=== PATIENT | female | born 1975 | race Caucasian/White ===

== ENCOUNTER → 2016-07-11 | Outpatient (CLI) | payer OTHER ==
[~2016-07-11] MED LIST: CETI10TA84 PO; CHOL100027 PO; CYAN10004 PO; LEVO125T72 PO
[2016-07-11 16:56] LABS: BLOOD UREA NITROGEN 14 mg/dl (7-18); BUN/CREATININE RATIO 18.4 (10-20); CALCIUM 9.6 mg/dl (8.5-10.1); CARBON DIOXIDE 29 mmol/L (21-32); CHLORIDE 104 mmol/L (98-107); CREATININE 0.75 mg/dl (0.60-1.20); GLUCOSE 78 mg/dl (70-99); POTASSIUM 3.8 mmol/L (3.5-5.1); SODIUM 140 mmol/L (136-145)
== END | disposition home or self-care (01) ==
LOC: C.LAB 15:27
PROVIDERS: ATTEND Internal Medicine Endocrinology, Diabetes & Metabolism
DX: E89.0 Postprocedural hypothyroidism (principal)

== ENCOUNTER → 2016-09-19 | Outpatient (CLI) | payer OTHER ==
[2016-09-19 17:09] LABS: THYROID STIMULATING HORMONE 0.726 uIu/ml (0.300-4.500)
== END | disposition home or self-care (01) ==
LOC: C.LAB 15:24
PROVIDERS: ATTEND Internal Medicine Endocrinology, Diabetes & Metabolism
DX: E05.00 Thyrotoxicosis with diffuse goiter without thyrotoxic crisis or storm (principal); E55.9 Vitamin D deficiency, unspecified; E66.9 Obesity, unspecified

== ENCOUNTER → 2017-04-01 | Outpatient (CLI) | payer OTHER | END | disposition home or self-care (01) | LOC: C.LAB 08:47 | PROVIDERS: ATTEND Nurse Practitioner Family | DX: E89.0 Postprocedural hypothyroidism (principal); E05.00 Thyrotoxicosis with diffuse goiter without thyrotoxic crisis or storm; E55.9 Vitamin D deficiency, unspecified; E66.9 Obesity, unspecified ==

== ENCOUNTER 2020-11-14 13:32 | Inpatient (IN) ==
[2020-11-14 14:17] LABS: Basophils # (auto) 0.02 K/uL (0-0.2); Basophils % (auto) 0.2 %; Eosinophils # (auto) 0.08 K/uL (0-0.5); Eosinophils % (auto) 0.9 %; Hematocrit (blood only) 46.8 % (37-47); Hemoglobin 15.7 g/dL (12.0-16.0); Immature Granulocytes # (auto) 0.01 K/uL (0.00-0.02); Immature Granulocytes % (auto) 0.1 %; Lymphocytes % (auto) 14.4 %; Mean Corpuscular Hemoglobin 31.4 pg (25-34); Mean Corpuscular Hgb Conc 33.5 g/dL (32-36); Mean Corpuscular Volume 93.6 fL (80-100); Mean Platelet Volume 10.6 fL (7.4-10.4); Monocytes # (auto) 0.26 K/uL (0.11-0.59); Monocytes % (auto) 2.9 %; Neutrophils # (auto) 7.36 K/uL (1.4-6.5); Neutrophils % (auto) 81.5 %; Platelet Count 293 K/uL (130-400); RDW Coefficient of Variation 13.4 % (11.5-14.5); RDW Standard Deviation 45.9 fL (36.4-46.3); White Blood Count 9.03 K/uL (4.8-10.8)
--- NOTE | 2020-11-14 14:23 | Emergency Department Note ---
Impression & Plan SBO (small bowel obstruction), Acute right flank pain ED Provider Note INFORMANT: Patient ED PROVIDER(S): Ponce Bridges MD CHIEF COMPLAINT: Right flank pain PLAN: Disposition: Admitted Condition: Good Outpatient prescription management: none Referral: None MEDICAL DECISION MAKING: Patient presented to the emergency department because of right flank pain. She underwent a work-up. Her CBC and chemistry panel were unremarkable. The patient was found to have a small bowel obstruction on CT imaging. The patient was hydrated and treated with Zofran. She had an NG tube placed. She was given Reglan and Benadryl due to nausea after NG tube placement. Received and she was feeling much better. The patient had a consult placed with Dr. Fam and he evaluated her in the ER. She was admitted for further management. Triage Nursing notes reviewed and agree them. Vital Signs: reviewed and remarkable for no significant abnormalities Differential diagnosis: Renal colic, UTI, appendicitis, diverticulitis, mesenteric ischemia, aortic pathology, infections, inflammatory bowel disease, PUD, biliary pathology, as well as other pathologies. Diagnostics interpreted by me: ECG: none Cardiac Monitoring: Cardiac monitoring ordered by me: The patient was placed on continuous cardiac monitoring and observed. It revealed a normal sinus rhythm at 86 beats per minute without ectopy or evidence of dysrhythmia. Imaging studies: CT scan of the head was concerning for small bowel obstruction with likely adhesions. I refer you to the EMR for further details. HPI: The patient is a 45 year old female who presents to the Emergency Room with complaints of right flank pain. This started yesterday and is worsening. The patient also notes the following associated symptoms, nausea, bloating. The patient has found no relieving factors. Current pain is rated as 5/10. Sharp pain, colicky. Pt denies LOC, headache, fevers, chills, diaphoresis, visual changes, neck pain, chest pain, breathing difficulties, nausea, vomiting, abdominal pain, back pain, melena, hematochezia, urinary symptoms, numbness, weakness, lymphadenopathy, rash, or other complaints. ROS: See above HPI for pertinent positives & negatives. A total of 10 systems reviewed and were otherwise negative. PAST MEDICAL HISTORY:See Below , hernia PAST SURGICAL HISTORY:See Below, hernia repair FAMILY HISTORY:See Below SOCIAL HISTORY:See Below, no tobacco HOME MEDICATIONS:See Below ALLERGIES:See Below VITALS:See Below PHYSICAL EXAMINATION: GENERAL: Awake, alert, well-appearing, in no distress HENT: Normocephalic, atraumatic. Oropharynx unremarkable. EYES: Normal conjunctiva. Sclera non-icteric. NECK: Inspection normal. Non-tender. Supple. No nuchal rigidity. FROM. No m asses. RESPIRATORY: Clear to auscultation. No wheezes. No rales. Normal respiratory effort. CARDIAC: Normal rate. Normal rhythm. No murmurs. No rubs. Extremities warm and well perfused. Pulses equal. No JVD. GI: Soft, non-distended. Right flank tenderness to palpation. No rebound or guarding. No masses. RECTAL: Deferred. MUSCULOSKELETAL: Atraumatic. Chest examination reveals no tenderness. The back is symmetrical on inspection without obvious abnormality. There is R CVA tenderness to palpation. No joint edema. LOWER EXTREMITIES: Calves are equal size bilaterally and non-tender. No edema. No discoloration. NEURO: Normal sensorium. No sensory or motor deficits noted. SKIN: No rash or jaundice noted. Ponce Bridges MD Past Med/Surg History Surgical History (Updated 10/28/18 @ 10:23 by Yahaira Richey) H/O: hysterectomy Social History Smoking Status: Former smoker Smoking End Date: 22 years ago; Hx Substance Use: No Preferred Language: [place] Lard Bleacher Required: No Beliefs That Will Affect Care: None Current Living Situation: Spouse Feels Safe at Home: Yes Safety Concerns: Feels Safe At This Time Assistive Devices: None Allergies Allergies Allergy/AdvReac Type Severity Reaction Status Date / Time No Known Allergies Allergy Mild Verified 11/14/20 15:48 Home Meds Home Medications Medication Instructions Recorded Confirmed levothyroxine 125 mcg tablet 125 mcg PO QAM 10/28/18 11/14/20 (Synthroid) multivitamin 1 tab PO DAILY 11/14/20 11/14/20 Results & Data (ED) Vital Signs Vital Signs - 24 hr 11/14/20 13:36 11/14/20 14:10 11/14/20 14:13 Temperature 36.6 C Temperature Source Temporal Artery Scan Pulse Rate 88 72 73 Pulse Rate from SpO2 Sensor 75 Pulse Rhythm Regular Regular Pulse Strength Normal Respiratory Rate 18 16 14 Respiratory Effort / Characteristics Non-Labored Spontaneous Respiratory Depth Normal Respiratory Pattern Regular Blood Pressure 140/107 H 131/97 Blood Pressure [Right Arm] Blood Pressure Mean 118 108 Blood Pressure Mean [Right Arm] Blood Pressure Position [Right Arm] Pulse Oximetry 99 97 98 Oxygen Delivery Method Room Air Room Air Sepsis Recent Fever Within 48 Hours No Sepsis New/Unexplained Change in Mental Status No Sepsis Action Taken by Nursing No Action Required 11/14/20 14:30 11/14/20 15:03 11/14/20 15:30 Temperature Temperature Source Pulse Rate 75 77 68 Pulse Rate from SpO2 Sensor 79 76 68 Pulse Rhythm Pulse Strength Respiratory Rate 12 14 10 L Respiratory Effort / Characteristics Respiratory Depth Respiratory Pattern Blood Pressure 135/94 133/83 135/95 Blood Pressure [Right Arm] Blood Pressure Mean 107 99 108 Blood Pressure Mean [Right Arm] Blood Pressure Position [Right Arm] Pulse Oximetry 97 97 97 Oxygen Delivery Method Sepsis Recent Fever Within 48 Hours Sepsis New/Unexplained Change in Mental Status Sepsis Action Taken by Nursing 11/14/20 16:18 11/14/20 16:30 Temperature 36.8 C Temperature Source Oral Pulse Rate 101 H Pulse Rate from SpO2 Sensor Pulse Rhythm Pulse Strength Respiratory Rate 16 20 Respiratory Effort / Characteristics Non-Labored Spontaneous Respiratory Depth Normal Respiratory Pattern Regular Blood Pressure 124/96 Blood Pressure [Right Arm] 133/87 Blood Pressure Mean 105 Blood Pressure Mean [Right Arm] 102 Blood Pressure Position [Right Arm] Lying Pulse Oximetry 99 Oxygen Delivery Method Room Air Sepsis Recent Fever Within 48 Hours Sepsis New/Unexplained Change in Mental Status Sepsis Action Taken by Nursing Laboratory Data Result diagrams: 11/14/20 14:06 11/14/20 18:56 Lab Results 11/14/20 11/14/20 11/14/20 Range/Units 14:00 14:06 14:06 WBC 9.03 (4.8-10.8) K/uL RBC 5.00 (4.2-5.4) M/uL Hgb 15.7 (12.0-16.0) g/dL Hct 46.8 (37-47) % MCV 93.6 (80-100) fL MCH 31.4 (25-34) pg MCHC 33.5 (32-36) g/dL RDW Std Deviation 45.9 (36.4-46.3) fL RDW Coeff of Slim 13.4 (11.5-14.5) % Plt Count 293 (130-400) K/uL MPV 10.6 H (7.4-10.4) fL Immature Gran % (Auto) 0.1 % Neut % (Auto) 81.5 % Lymph % (Auto) 14.4 % Sabine % (Auto) 2.9 % Eos % (Auto) 0.9 % Baso % (Auto) 0.2 % Neut # (Auto) 7.36 H (1.4-6.5) K/uL Lymph # (Auto) 1.30 (1.2-3.4) K/uL Sabine # (Auto) 0.26 (0.11-0.59) K/uL Eos # (Auto) 0.08 (0-0.5) K/uL Baso # (Auto) 0.02 (0-0.2) K/uL Immature Gran # (Auto) 0.01 (0.00-0.02) K/uL Sodium 136 (136-145) mmol/L Potassium 4.0 (3.5-5.1) mmol/L Chloride 106 (98-107) mmol/L Carbon Dioxide 25 (21-32) mmol/L Anion Gap 6.0 (3-11) BUN 12 (7-18) mg/dl Creatinine 0.72 (0.6-1.2) mg/dl Est Cr Clr Drug Dosing 99.4 ml/min Est GFR ( Amer) 118.9 ml/min Est GFR (Non-Af Amer) 102.6 ml/min BUN/Creatinine Ratio 16.0 (10-20) Glucose 93 (70-99) mg/dl Calcium 8.9 (8.5-10.1) mg/dl Total Bilirubin 0.4 (0.2-1) mg/dl AST 9 L (15-37) U/L ALT 22 (12-78) U/L Alkaline Phosphatase 57 (45-117) U/L Total Protein 7.6 (6.4-8.2) gm/dl Albumin 4.1 (3.4-5.0) gm/dl Globulin 3.5 (2.5-4.0) gm/dl Albumin/Globulin Ratio 1.2 (0.9-2) Lipase 125 (73-393) U/L HCG, Qual (Negative) Urine Color Yellow Urine Appearance Clear (Clear) Urine pH 6.5 (4.5-7.5) Ur Specific Hector 1.010 (1.000-1.030) Urine Protein Negative (Negative) Urine Glucose (UA) Negative (Negative) Urine Ketones Negative (Negative) Urine Blood Trace H (Negative) Urine Nitrite Negative (Negative) Urine Bilirubin Negative (Negative) Urine Urobilinogen Negative (Negative) Ur Leukocyte Esterase Negative (Negative) Urine WBC (Auto) 0 (0-5) /hpf Urine RBC (Auto) 0-4 (0-4) /hpf U Hyaline Cast (Auto) 1-5 (0-5) /lpf U Epithel Cells (Auto) >30 H (0-5) /lpf Urine Bacteria (Auto) Negative (Negative) COVID-19 Eval Order SARS-CoV-2 (PCR) (Negative) 11/14/20 11/14/20 11/14/20 Range/Units 14:06 15:44 15:44 WBC (4.8-10.8) K/uL RBC (4.2-5.4) M/uL Hgb (12.0-16.0) g/dL Hct (37-47) % MCV (80-100) fL MCH (25-34) pg MCHC (32-36) g/dL RDW Std Deviation (36.4-46.3) fL RDW Coeff of Slim (11.5-14.5) % Plt Count (130-400) K/uL MPV (7.4-10.4) fL Immature Gran % (Auto) % Neut % (Auto) % Lymph % (Auto) % Sabine % (Auto) % Eos % (Auto) % Baso % (Auto) % Neut # (Auto) (1.4-6.5) K/uL Lymph # (Auto) (1.2-3.4) K/uL Sabine # (Auto) (0.11-0.59) K/uL Eos # (Auto) (0-0.5) K/uL Baso # (Auto) (0-0.2) K/uL Immature Gran # (Auto) (0.00-0.02) K/uL Sodium (136-145) mmol/L Potassium (3.5-5.1) mmol/L Chloride (98-107) mmol/L Carbon Dioxide (21-32) mmol/L Anion Gap (3-11) BUN (7-18) mg/dl Creatinine (0.6-1.2) mg/dl Est Cr Clr Drug Dosing ml/min Est GFR ( Amer) ml/min Est GFR (Non-Af Amer) ml/min BUN/Creatinine Ratio (10-20) Glucose (70-99) mg/dl Calcium (8.5-10.1) mg/dl Total Bilirubin (0.2-1) mg/dl AST (15-37) U/L ALT (12-78) U/L Alkaline Phosphatase (45-117) U/L Total Protein (6.4-8.2) gm/dl Albumin (3.4-5.0) gm/dl Globulin (2.5-4.0) gm/dl Albumin/Globulin Ratio (0.9-2) Lipase (73-393) U/L HCG, Qual Negative (Negative) Urine Color Urine Appearance (Clear) Urine pH (4.5-7.5) Ur Specific Hector (1.000-1.030) Urine Protein (Negative) Urine Glucose (UA) (Negative) Urine Ketones (Negative) Urine Blood (Negative) Urine Nitrite (Negative) Urine Bilirubin (Negative) Urine Urobilinogen (Negative) Ur Leukocyte Esterase (Negative) Urine WBC (Auto) (0-5) /hpf Urine RBC (Auto) (0-4) /hpf U Hyaline Cast (Auto) (0-5) /lpf U Epithel Cells (Auto) (0-5) /lpf Urine Bacteria (Auto) (Negative) COVID-19 Eval Order Covid19 at [facility] SARS-CoV-2 (PCR) NEGATIVE (Negative) Administered Medications Potassium Chloride/Dextrose/Sod Cl (D5w And 1/2nss + 20meq Kcl) 20 meq in 1,000 mls @ 100 mls/hr IV .Q10H PEBBLES Stop: 12/14/20 18:44 Last Admin: 11/14/20 19:31 Dose: 100 mls/hr Documented by: [id number] Pantoprazole Sodium 40 mg/ (Syringe) 10 mls @ 5 mls/min IV BID PEBBLES Stop: 12/14/20 20:59 Last Admin: 11/14/20 21:20 Dose: 5 mls/min Documented by: [id number] Discontinued Medications Diphenhydramine HCl (Diphenhydramine 50 Mg/Ml Vial) 25 mg IV NOW STA Stop: 11/14/20 16:07 Last Admin: 11/14/20 16:11 Dose: 25 mg Documented by: [id number] Sodium Chloride (Nss 1000ml) 1,000 mls @ 125 mls/hr IV .Q8H STA Stop: 11/14/20 23:31 Last Admin: 11/14/20 18:21 Dose: Not Given Documented by: [id number] Sodium Chloride (Nss 1000ml) 500 mls @ 999 mls/hr IV .Q31M ONE Stop: 11/14/20 16:02 Last Infusion: 11/14/20 17:03 Dose: 0 mls/hr Documented by: [id number] Admin: 11/14/20 16:26 Dose: 999 mls/hr Documented by: [id number] Cefazolin Sodium (Ancef 1000mg) 1,000 mg in 7.5 mls @ 2.5 mls/min IV Q8H PEBBLES Stop: 11/24/20 18:29 Last Admin: 11/14/20 19:49 Dose: Not Given Documented by: [id number] Metoclopramide HCl (Metoclopramide Hcl Inj 5 Mg/Ml 2 Ml Vial) 10 mg IV NOW STA Stop: 11/14/20 16:07 Last Admin: 11/14/20 16:11 Dose: 10 mg Documented by: [id number] Ondansetron HCl (Ondansetron Inj 2 Mg/Ml 2 Ml Vial) 4 mg IV NOW STA Stop: 11/14/20 14:25 Last Admin: 11/14/20 15:10 Dose: 4 mg Documented by: [id number] Imaging Data Radiologist's Impression: Abdomen/Pelvis CT 11/14/20 14:23 CT OF THE ABDOMEN AND PELVIS WITHOUT CONTRAST CLINICAL HISTORY: Right flank pain. COMPARISON STUDY: CT of the abdomen and pelvis October 28, 2018. TECHNIQUE: Axial images of the abdomen and pelvis were obtained without IV contrast. Images were reviewed in the axial, sagittal, and coronal planes. Automated exposure control was utilized for the study. A dose lowering technique was utilized adhering to the principles of ALARA. FINDINGS: Imaged portions of the lower chest demonstrate trace bilateral pleural effusions. A 3 mm right middle lobe nodule on image 19 of [address] of October 28, 2018. This is benign. Evaluation of the abdomen and pelvis is suboptimal on this unenhanced exam. The liver, spleen, adrenal glands, kidneys and pancreas are normal. There is no biliary or pancreatic ductal dilatation is no hydronephrosis. The stomach is moderately distended and fluid-filled. Multiple mid small bowel loops are also moderately distended and fluid-filled. There is associated mesenteric edema and interloop fluid with a small amount of ascites within the abdomen and pelvis. Transition point is within the lower anterior abdomen adjacent to ventral hernia repair mesh. Transition is shown on 308 of 466. Distal small bowel is dec ompressed. No pneumatosis, free air or portal venous gas is present. Note is made of a 4.6 cm left adnexal lesion which measures above water attenuation. IMPRESSION: 1. Findings consistent with a moderate to high-grade small bowel obstruction. T ransition point within the lower anterior abdomen adjacent to the ventral mesh. The obstruction is likely due to adhesions. Associated mesenteric edema and abdominal and pelvic ascites. Distended, fluid-filled stomach. Nasogastric tube placement might be considered. 2. 4.6 cm left adnexal lesion. This is indeterminate although probably benign. A follow-up pelvic ultrasound in 2 months is recommended. ACT 112: Negative or not required by law. Electronically signed by: Omero Smith M.D. 11/14/2020 3:17 PM Discharge Plan Visit Data Chief Complaint: Back Injury/Pain Stated Complaint: SHARP ABDOMINAL AND BACK PAIN ED Provider: Ponce Bridges Discharge Problem: SBO (small bowel obstruction), Acute right flank pain Patient Disposition: Admitted As Inpatient Discharge Instructions Interventions: ED Discharge Assessment Last Done: 11/14/20 17:36
[2020-11-14] MEDS ORDERED: ONDANSETRON INJ 2 MG/ML 2 ML VIAL IV STA (14:24)
[2020-11-14 14:34] LABS: Pregnancy Test, Serum Negative (Negative)
[2020-11-14 14:39] LABS: Albumin Level 4.1 gm/dl (3.4-5.0); Calcium 8.9 mg/dl (8.5-10.1); Creatinine Clr Calc Pharmacy 99.4 ml/min; Est GFR (African American) 118.9 ml/min; Est GFR (Non-African American) 102.6 ml/min
[2020-11-14 14:42] LABS: Albumin Globulin Ratio 1.2 (0.9-2); Bilirubin,Total 0.4 mg/dl (0.2-1); Globulin 3.5 gm/dl (2.5-4.0); Total Protein 7.6 gm/dl (6.4-8.2)
[2020-11-14 14:44] LABS: Appearance Urine Clear (Clear); Bacteria Urine Automated Negative (Negative); Bilirubin Urine Negative (Negative); Blood Urine Trace (Negative); Color Urine Yellow; Epithelial Cell Urine Auto >30 /lpf (0-5); Glucose Urine UA Negative (Negative); Ketones Urine Negative (Negative); Leukocyte Esterase Urine Negative (Negative); Nitrite Urine Negative (Negative); Protein Urine Negative (Negative); RBC Urine Automated 0-4 /hpf (0-4); Urobilinogen Urine Negative (Negative); WBC Urine Automated 0 /hpf (0-5); pH Urine 6.5 (4.5-7.5)
--- NOTE | 2020-11-14 15:18 | CT Scan Report ---
CT OF THE ABDOMEN AND PELVIS WITHOUT CONTRAST CLINICAL HISTORY: Right flank pain. COMPARISON STUDY: CT of the abdomen and pelvis October 28, 2018. TECHNIQUE: Axial images of the abdomen and pelvis were obtained without IV contrast. Images were revi ewed in the axial, sagittal, and coronal planes. Automated exposure control was utilized for the roge dy. A dose lowering technique was utilized adhering to the principles of ALARA. FINDINGS: Imaged portions of the lower chest demonstrate trace bilateral pleural effusions. A 3 mm ri ght middle lobe nodule on image 19 of [address] of October 28, 2018. This is benign. Evaluation of the abdomen and pelvis is suboptimal on this unenhanced exam. The liver, spleen, adrena l glands, kidneys and pancreas are normal. There is no biliary or pancreatic ductal dilatation is no hydronephrosis. The stomach is moderately distended and fluid-filled. Multiple mid small bowel loops are also moderately distended and fluid-filled. There is associated mesenteric edema and interloop fl uid with a small amount of ascites within the abdomen and pelvis. Transition point is within the lowe r anterior abdomen adjacent to ventral hernia repair mesh. Transition is shown on 308 of 466. Distal small bowel is decompressed. No pneumatosis, free air or portal venous gas is present. Note is made o f a 4.6 cm left adnexal lesion which measures above water attenuation. IMPRESSION: 1. Findings consistent with a moderate to high-grade small bowel obstruction. Transition point within the lower anterior abdomen adjacent to the ventral mesh. The obstruction is likely due to adhesions. Associated mesenteric edema and abdominal and pelvic ascites. Distended, fluid-filled stomach. Nasog astric tube placement might be considered. 2. 4.6 cm left adnexal lesion. This is indeterminate although probably benign. A follow-up pelvic ult rasound in 2 months is recommended. ACT 112: Negative or not required by law. Electronically signed by: Omero Smith M.D. 11/14/2020 3:17 PM
[2020-11-14] MEDS ORDERED: SODIUM CHLORIDE 0.9% 1000ML 1,000 ML IV STA (15:32)
[2020-11-14] MEDS ORDERED: SODIUM CHLORIDE 0.9% 1000ML 500 ML IV ONE (15:32)
[2020-11-14] MEDS ORDERED: METOCLOPRAMIDE HCL INJ 5 MG/ML 2 ML VIAL IV STA (16:06)
[2020-11-14] MEDS ORDERED: diphenhydrAMINE 50 MG/ML VIAL IV STA (16:06)
--- NOTE | 2020-11-14 16:36 | Surgery Consultation ---
Date of Consultation November 14, 2020 Assessment & Plan (1) SBO (small bowel obstruction): pt is a 45 year-old female who presents to ER with one day history abdominal pain, CT scan diagnosis- SBO, possible adhesion to anterior abdominal wall mesh, IMP: SBO, Plan, I recommend to admit pt to hospital conservative treatment first, NPO, IV fluid, control pain, NG tube, repeat labs in morning, possible surgery treatment if pt's symptoms are worse, pt understood, she agrees with the plan, I answered all questions, History of Present Illness Reason for Consultation: SBO Requesting Physician: Ponce Bridges MD Attending Physician: Brent Fam mD History of Present Illness CC: abdominal pain HPI: The patient is a 45 year old female who presents to the Emergency Room with complaints of right flank pain. This started yesterday and is worsening. The patient also notes the following associated symptoms, nausea, bloating. The patient has found no relieving factors. Current pain is rated as 5/10. Sharp pain, colicky. Pt denies LOC, headache, fevers, chills, diaphoresis, visual changes, neck pain, chest pain, breathing difficulties, nausea, vomiting, abdominal pain, back pain, melena, hematochezia, urinary symptoms, numbness, weakness, lymphadenopathy, rash, or other complaints. I ( Brent Fam MD )got a call for consult SBO, I reviewed pt's H/P, labs, Ct scan with pt, pt had NG tube placed at ER, pt had open repair ventral hernia 10 years ago, pt had abdominal wall surgery last year, Allergies Allergy/AdvReac Type Severity Reaction Status Date / Time No Known Allergies Allergy Mild Verified 11/14/20 15:48 Home Medications Medication Instructions Recorded Confirmed Type levothyroxine 125 mcg tablet 125 mcg PO QAM 10/28/18 11/14/20 History (Synthroid) multivitamin 1 tab PO DAILY 11/14/20 11/14/20 History Patient History Surgical History (Updated 10/28/18 @ 10:23 by Yahaira Richey) H/O: hysterectomy Social History Smoking Status: Never smoker Feels Safe at Home: Yes Review of Systems Constitutional: as per Subjective / HPI Eyes: as per Subjective / HPI Respiratory: as per Subjective / HPI Cardiovascular: as per Subjective / HPI Gastrointestinal: open repair incisional hernia with mesh 10 years ago, abdominal wall surgery one year ago, Genitourinary: as per Subjective / HPI Musculoskeletal: as per Subjective / HPI Integumentary: as per Subjective / HPI Neurologic: as per Subjective / HPI Psychiatric: as per Subjective / HPI Endocrine: as per Subjective / HPI Hematologic / Lymphatic: as per Subjective / HPI Physical Exam Constitutional: WD/WN, vitals as above Eyes: PERRL, conjunctivae normal, anicteric sclerae Neck: trachea midline, no thyromegaly Respiratory: normal respiratory effort, lungs clear to auscultation Cardiovascular: RRR, no murmur, no edema Gastrointestinal (Abdomen): soft, no distend, mild tenderness at right side abdomen, middle line scar, BS +. Musculoskeletal: no cyanosis or clubbing, extremities motor strength 5/5 Skin: no rashes, warm and dry Neurologic: patellar DTR's 2+ bilat, sensation intact Psychiatric: A+Ox3, euthymic affect Results & Data ([facility]) Vital Signs (Past 12 Hours) Vital Signs Temp Pulse Resp BP Pulse Ox 11/14/20 15:03 77 14 133/83 97 11/14/20 14:30 75 12 135/94 97 11/14/20 14:13 73 14 131/97 98 11/14/20 14:10 72 16 97 11/14/20 13:36 36.6 C 88 18 140/107 H 99 Laboratory Results Abnormal lab results 11/14/20 11/14/20 11/14/20 Range/Units 14:00 14:06 14:06 MPV 10.6 H (7.4-10.4) fL Neut # (Auto) 7.36 H (1.4-6.5) K/uL AST 9 L (15-37) U/L Urine Blood Trace H (Negative) U Epithel Cells (Auto) >30 H (0-5) /lpf Diagnostic Findings CT OF THE ABDOMEN AND PELVIS WITHOUT CONTRAST CLINICAL HISTORY: Right flank pain. COMPARISON STUDY: CT of the abdomen and pelvis October 28, 2018. TECHNIQUE: Axial images of the abdomen and pelvis were obtained without IV contrast. Images were reviewed in the axial, sagittal, and coronal planes. Automated exposure control was utilized for the study. A dose lowering technique was utilized adhering to the principles of ALARA. FINDINGS: Imaged portions of the lower chest demonstrate trace bilateral pleural effusions. A 3 mm right middle lobe nodule on image 19 of [address] of October 28, 2018. This is benign. Evaluation of the abdomen and pelvis is suboptimal on this unenhanced exam. The liver, spleen, adrenal glands, kidneys and pancreas are normal. There is no biliary or pancreatic ductal dilatation is no hydronephrosis. The stomach is moderately distended and fluid-filled. Multiple mid small bowel loops are also moderately distended and fluid-filled. There is associated mesenteric edema and interloop fluid with a small amount of ascites within the abdomen and pelvis. Transition point is within the lower anterior abdomen adjacent to ventral hernia repair mesh. Transition is shown on 308 of 466. Distal small bowel is decompressed. No pneumatosis, free air or portal venous gas is present. Note is made of a 4.6 cm left adnexal lesion which measures above water attenuation. IMPRESSION: 1. Findings consistent with a moderate to high-grade small bowel obstruction. Transition point within the lower anterior abdomen adjacent to the ventral mesh. The obstruction is likely due to adhesions. Associated mesenteric edema and abdominal and pelvic ascites. Distended, fluid-filled stomach. Nasogastric tube placement might be considered. 2. 4.6 cm left adnexal lesion. This is indeterminate although probably benign. A follow-up pelvic ultrasound in 2 months is recommended.
[2020-11-14] MEDS ORDERED: HYDROmorphone INJ 1 MG/ML SYRINGE IV PRN (18:20)
[2020-11-14 19:26] LABS: Albumin Level 3.8 gm/dl (3.4-5.0); BUN Creatinine Ratio 15.6 (10-20); Calcium 8.4 mg/dl (8.5-10.1); Creatinine Clr Calc Pharmacy 108.5 ml/min; Est GFR (African American) 125.4 ml/min; Est GFR (Non-African American) 108.2 ml/min; Potassium 4.1 mmol/L (3.5-5.1)
[2020-11-14 19:29] LABS: Albumin Globulin Ratio 1.1 (0.9-2); Bilirubin,Total 0.4 mg/dl (0.2-1); Globulin 3.4 gm/dl (2.5-4.0); Total Protein 7.2 gm/dl (6.4-8.2)
[2020-11-14] MEDS: D5W AND 1/2NSS + 20MEQ KCL 20 MEQ/1,000 ML BAG IV SCH (19:31)
[2020-11-14] MEDS: ceFAZolin 1000MG 1,000 MG/7.5 ML SYR IV SCH ×2 (19:31→19:49)
[2020-11-14] MEDS: PANTOprazole 40 MG in SYRINGE 0 ML IV SCH (21:20)
[2020-11-15] MEDS: LEVOTHYROXINE SODIUM 125 MCG TABLET PO SCH (05:09)
[2020-11-15] MEDS: D5W AND 1/2NSS + 20MEQ KCL 20 MEQ/1,000 ML BAG IV SCH ×2 (05:38→16:18)
[2020-11-15 07:42] LABS: Basophils # (auto) 0.01 K/uL (0-0.2); Basophils % (auto) 0.2 %; Eosinophils # (auto) 0.24 K/uL (0-0.5); Eosinophils % (auto) 4.4 %; Hematocrit (blood only) 40.9 % (37-47); Hemoglobin 13.6 g/dL (12.0-16.0); Lymphocytes # (auto) 1.86 K/uL (1.2-3.4); Lymphocytes % (auto) 34.1 %; Mean Corpuscular Hemoglobin 31.3 pg (25-34); Mean Corpuscular Hgb Conc 33.3 g/dL (32-36); Mean Platelet Volume 10.5 fL (7.4-10.4); Monocytes # (auto) 0.48 K/uL (0.11-0.59); Monocytes % (auto) 8.8 %; Neutrophils # (auto) 2.86 K/uL (1.4-6.5); Neutrophils % (auto) 52.5 %; Platelet Count 235 K/uL (130-400); RDW Coefficient of Variation 13.3 % (11.5-14.5); Red Blood Count 4.35 M/uL (4.2-5.4); White Blood Count 5.45 K/uL (4.8-10.8)
[2020-11-15 08:19] LABS: Albumin Level 3.3 gm/dl (3.4-5.0); BUN Creatinine Ratio 13.2 (10-20); Calcium 8.1 mg/dl (8.5-10.1); Creatinine Clr Calc Pharmacy 110.1 ml/min; Est GFR (Non-African American) 108.7 ml/min
[2020-11-15 08:21] LABS: Albumin Globulin Ratio 1.1 (0.9-2); Bilirubin,Total 0.5 mg/dl (0.2-1); Total Protein 6.3 gm/dl (6.4-8.2)
[2020-11-15] MEDS: PANTOprazole 40 MG in SYRINGE 0 ML IV SCH ×2 (08:39→20:33)
[2020-11-15] MEDS: MULTIVITAMIN TAB PO SCH (08:39)
--- NOTE | 2020-11-15 09:27 | XRay Report ---
XR KUB/Abdomen 1 view CLINICAL HISTORY: SBO COMPARISON STUDY: CT scan dated 11/14/2020 FINDINGS: There is gas present within small bowel and colon. There is a featureless pelvic bowel loop measuring 5 cm in diameter, likely representing a distended small bowel loop. IMPRESSION: Mildly dilated small bowel. Gas present within nondilated colon. ACT 112: Negative or not required by law. Electronically signed by: Alexander Alejandra M.D. 11/15/2020 9:25 AM
--- NOTE | 2020-11-15 11:11 | Progress Note ---
Date of Service November 15, 2020 Assessment & Plan (1) SBO (small bowel obstruction): Plan: pt is a 45 year-old female who presents to ER with one day history abdominal pain, CT scan diagnosis- SBO, possible adhesion to anterior abdominal wall mesh, IMP: SBO, Plan, I recommend to admit pt to hospital conservative treatment first, NPO, IV fluid, control pain, NG tube, repeat labs in morning, possible surgery treatment if pt's symptoms are worse, pt understood, she agrees with the plan, I answered all questions, Plan: F/U SBO, doing better, continue treatment, OOB, may start clear diet tomorrow, will F/U, Admission and Anticipated Discharge Date Admission Date: November 14, 2020 Subjective F/U SBO, pt is doing better, no abdominal pain, no nausea, no vomiting,not pass gas or BM yet, KUB- air in colon, Review of Systems Constitutional: as per Subjective / HPI Eyes: as per Subjective / HPI Respiratory: as per Subjective / HPI Cardiovascular: as per Subjective / HPI Gastrointestinal: open repair incisional hernia with mesh 10 years ago, abdominal wall surgery one year ago, Genitourinary: as per Subjective / HPI Musculoskeletal: as per Subjective / HPI Integumentary: as per Subjective / HPI Neurologic: as per Subjective / HPI Psychiatric: as per Subjective / HPI Endocrine: as per Subjective / HPI Hematologic / Lymphatic: as per Subjective / HPI Physical Exam Constitutional: WD/WN, vitals as above Eyes: PERRL, conjunctivae normal, anicteric sclerae Neck: trachea midline, no thyromegaly Respiratory: normal respiratory effort, lungs clear to auscultation Cardiovascular: RRR, no murmur, no edema Gastrointestinal (Abdomen): soft, NT, ND, BS + Musculoskeletal: no cyanosis or clubbing, extremities motor strength 5/5 Skin: no rashes, warm and dry Neurologic: patellar DTR's 2+ bilat, sensation intact Psychiatric: A+Ox3, euthymic affect Results & Data ([facility]) Vital Signs (Past 12 Hours) Vital Signs Temp Pulse Resp BP Pulse Ox 11/15/20 07:33 36.6 C 64 16 119/76 97 Diagnostic Findings XR KUB/Abdomen 1 view CLINICAL HISTORY: SBO COMPARISON STUDY: CT scan dated 11/14/2020 FINDINGS: There is gas present within small bowel and colon. There is a featureless pelvic bowel loop measuring 5 cm in diameter, likely representing a distended small bowel loop. IMPRESSION: Mildly dilated small bowel. Gas present within nondilated colon.
[2020-11-16] MEDS: D5W AND 1/2NSS + 20MEQ KCL 20 MEQ/1,000 ML BAG IV SCH ×3 (01:32→21:35)
[2020-11-16] MEDS: LEVOTHYROXINE SODIUM 125 MCG TABLET PO SCH (06:10)
--- NOTE | 2020-11-16 08:35 | XRay Report ---
XR KUB/Abdomen 1 view CLINICAL HISTORY: SBO COMPARISON STUDY: 11/15/2020 FINDINGS: There is increasing colonic gas. There is no definitive small bowel dilatation. IMPRESSION: 1. No convincing evidence of bowel obstruction on this supine study. ACT 112: Negative or not required by law. Electronically signed by: Alexander Alejandra M.D. 11/16/2020 8:34 AM
[2020-11-16] MEDS: MULTIVITAMIN TAB PO SCH (09:21)
[2020-11-16] MEDS: PANTOprazole 40 MG in SYRINGE 0 ML IV SCH ×2 (09:22→21:01)
--- NOTE | 2020-11-16 11:52 | Progress Note ---
Date of Service November 16, 2020 Assessment & Plan (1) SBO (small bowel obstruction): Plan: pt is a 45 year-old female who presents to ER with one day history abdominal pain, CT scan diagnosis- SBO, possible adhesion to anterior abdominal wall mesh, IMP: SBO, Plan, I recommend to admit pt to hospital conservative treatment first, NPO, IV fluid, control pain, NG tube, repeat labs in morning, possible surgery treatment if pt's symptoms are worse, pt understood, she agrees with the plan, I answered all questions, Plan: F/U SBO, doing better, continue treatment, OOB, may start clear diet tomorrow, will F/U, 11/16/2020 11:54AM F/U SBO, doing better, passed gas, no abdominal pain, KUB- no SBO, continue treatment, OOB, may start full liquid diet today, may D/C home tomorrow, roger F/U Admission and Anticipated Discharge Date Admission Date: November 14, 2020 Subjective F/U SBO, pt is doing better, no abdominal pain, no nausea, no vomiting,not pass gas or BM yet, KUB- air in colon, 11/16/2020 11:53 AM, doing fine, no abdominal pain, no nausea, no vomiting, KUB - no SBO, Review of Systems Constitutional: as per Subjective / HPI Eyes: as per Subjective / HPI Respiratory: as per Subjective / HPI Cardiovascular: as per Subjective / HPI Gastrointestinal: open repair incisional hernia with mesh 10 years ago, abdominal wall surgery one year ago, Genitourinary: as per Subjective / HPI Musculoskeletal: as per Subjective / HPI Integumentary: as per Subjective / HPI Neurologic: as per Subjective / HPI Psychiatric: as per Subjective / HPI Endocrine: as per Subjective / HPI Hematologic / Lymphatic: as per Subjective / HPI Physical Exam Constitutional: WD/WN, vitals as above Eyes: PERRL, conjunctivae normal, anicteric sclerae Neck: trachea midline, no thyromegaly Respiratory: normal respiratory effort, lungs clear to auscultation Cardiovascular: RRR, no murmur, no edema Gastrointestinal (Abdomen): soft, NT, ND BS + Musculoskeletal: no cyanosis or clubbing, extremities motor strength 5/5 Skin: no rashes, warm and dry Neurologic: patellar DTR's 2+ bilat, sensation intact Psychiatric: A+Ox3, euthymic affect Results & Data ([facility]) Vital Signs (Past 12 Hours) Vital Signs Temp Pulse Resp BP Pulse Ox 11/16/20 07:47 36.7 C 62 16 116/71 98 Diagnostic Findings XR KUB/Abdomen 1 view CLINICAL HISTORY: SBO COMPARISON STUDY: 11/15/2020 FINDINGS: There is increasing colonic gas. There is no definitive small bowel dilatation. IMPRESSION: 1. No convincing evidence of bowel obstruction on this supine study.
[2020-11-17] MEDS: LEVOTHYROXINE SODIUM 125 MCG TABLET PO SCH (06:14)
[2020-11-17] MEDS: MULTIVITAMIN TAB PO SCH (08:46)
[2020-11-17] MEDS: D5W AND 1/2NSS + 20MEQ KCL 20 MEQ/1,000 ML BAG IV SCH (08:46)
[2020-11-17] MEDS: PANTOprazole 40 MG in SYRINGE 0 ML IV SCH (08:46)
--- NOTE | 2020-11-17 11:05 | Progress Note ---
Date of Service November 17, 2020 Assessment & Plan (1) SBO (small bowel obstruction): Plan: pt is a 45 year-old female who presents to ER with one day history abdominal pain, CT scan diagnosis- SBO, possible adhesion to anterior abdominal wall mesh, IMP: SBO, Plan, I recommend to admit pt to hospital conservative treatment first, NPO, IV fluid, control pain, NG tube, repeat labs in morning, possible surgery treatment if pt's symptoms are worse, pt understood, she agrees with the plan, I answered all questions, Plan: F/U SBO, doing better, continue treatment, OOB, may start clear diet tomorrow, will F/U, 11/16/2020 11:54AM F/U SBO, doing better, passed gas, no abdominal pain, KUB- no SBO, continue treatment, OOB, may start full liquid diet today, may D/C home tomorrow, roger F/U 11/17/2020 11: 02AM d/c home today, the instruction was given, F/U 2 weeks, Admission and Anticipated Discharge Date Admission Date: November 14, 2020 Subjective F/U SBO, pt is doing better, no abdominal pain, no nausea, no vomiting,not pass gas or BM yet, KUB- air in colon, 11/16/2020 11:53 AM, doing fine, no abdominal pain, no nausea, no vomiting, KUB - no SBO, 11/17/2020 11:02AM sbo resolved, no abdominal pain, passed gas, tolerated diet, Review of Systems Constitutional: as per Subjective / HPI Eyes: as per Subjective / HPI Respiratory: as per Subjective / HPI Cardiovascular: as per Subjective / HPI Gastrointestinal: open repair incisional hernia with mesh 10 years ago, abdominal wall surgery one year ago, Genitourinary: as per Subjective / HPI Musculoskeletal: as per Subjective / HPI Integumentary: as per Subjective / HPI Neurologic: as per Subjective / HPI Psychiatric: as per Subjective / HPI Endocrine: as per Subjective / HPI Hematologic / Lymphatic: as per Subjective / HPI Physical Exam Constitutional: WD/WN, vitals as above Eyes: PERRL, conjunctivae normal, anicteric sclerae Neck: trachea midline, no thyromegaly Respiratory: normal respiratory effort, lungs clear to auscultation Cardiovascular: RRR, no murmur, no edema Gastrointestinal (Abdomen): soft, NT, nD BS + Musculoskeletal: no cyanosis or clubbing, extremities motor strength 5/5 Skin: no rashes, warm and dry Neurologic: patellar DTR's 2+ bilat, sensation intact Psychiatric: A+Ox3, euthymic affect Results & Data ([facility]) Vital Signs (Past 12 Hours) Vital Signs Temp Pulse Resp BP Pulse Ox 11/17/20 07:27 36.4 C L 64 16 110/70 97
--- NOTE | 2020-11-17 12:41 | Discharge Summary (DS) ---
DATE OF ADMISSION: 11/14/2020. DATE OF DISCHARGE: 11/17/2020. ADMISSION DIAGNOSES: Small bowel obstruction. DETAILS OF DISCHARGE SUMMARY: This is a 45-year-old female who was admitted to the hospital with abd ominal pain, nausea, vomiting. CT scan diagnosed as small-bowel obstruction, admitted the patient to conservative treatment and after 2 days of treatment patient was feeling better, passed gas. The pa tient tolerated the diet, no abdominal pain and repeat KUB and small bowel resolved. PHYSICAL EXAMINATION: VITAL SIGNS: Temperature is 36.4, respiratory rate 16, heart rate 64, blood pressure 110/70, O2 satu ration 97% on room air. GENERAL: Patient alert, awake, oriented x3. HEENT: With normal limitation. NEUROLOGIC: intact. NECK: No JVD. CHEST: Bilateral lung sounds clear. HEART: Normal S1 and S2. No murmur. ABDOMEN: Soft, no distention, no tenderness. Bowel sounds positive. EXTREMITIES: No edema. The patient will go home today. We gave the patient a care instruction and the patient understands. I will follow up the patient in 2 weeks. Also, I instructed the patient, if the patient develops ab dominal pain, fever, temperature patient should come back to the hospital ER. Again, the patient und erstands. Job ID: [id number]
== END 2020-11-17 12:21 | disposition home or self-care (01) | DRG 390 ==
LOC: ED 13:32 → 3W 16:47